=== PATIENT | female | born 1945 | race American Indian/Alaskan Native ===

== ENCOUNTER 2016-11-16 13:19 | Outpatient (CLI) | payer MEDICARE ==
--- NOTE | 2016-11-16 14:17 | Mammography Report ---
BILATERAL DIGITAL SCREENING MAMMOGRAM : 11/16/16 13:19:00 CLINICAL: Routine screening. COMPARISON:10/23/15 FINDINGS: The breasts are heterogeneously dense, which may obscure small masses. A group of left upper outer calcifications requires additional imaging. No mass or architectural distortion.The right breast is negative. IMPRESSION: Left calcifications requiring further workup. BI-RADS CATEGORY: 0 -- Additional Imaging Evaluation Required RECOMMENDATION: Recall for left ML and spot magnification CC and ML views. ACR BI-RADS MAMMOGRAPHIC CODES: 0 = Needs additional imaging evaluation; 1 = Negative; 2 = Benign; 3 = Probably benign; 4 = Suspicious; 5 = Malignant; 6 = Known biopsy-proven malignancy COMMENT: 1. Dense breast tissue, i.e., adenosis, fibrocystic changes, etc., may obscure an underlying neoplasm. 2. Approximately 10% of cancers are not detected with mammography. 3. A negative mammography report should not delay biopsy if a clinically suspicious mass is present. COMMENT: Patient follow-up letters are generated via our [employer] application.
== END 2016-11-16 13:20 | disposition home or self-care (01) ==
LOC: SPVWC 13:19
PROVIDERS: ATTEND Internal Medicine
DX: Z12.31 Encounter for screening mammogram for malignant neoplasm of breast (principal)
CPT/HCPCS: 77067; G0202

== ENCOUNTER 2016-12-09 15:00 | Outpatient (CLI) | payer MEDICARE ==
--- NOTE | 2016-12-09 15:38 | Mammography Report ---
LEFT DIGITAL DIAGNOSTIC MAMMOGRAM : 12/09/16 15:00:00 CLINICAL: Recall calcifications. COMPARISON:11/16/16 screening. FINDINGS: ML and CC magnification views demonstrate a group of relatively dense coarse calcifications which have increased in number compared to prior exams. However, no suspicious forms. No associated mass or architectural distortion. IMPRESSION: Probably benign calcifications. BI-RADS CATEGORY: 3 -- Probably Benign RECOMMENDATION: 6 month follow-up magnification views left breast. ACR BI-RADS MAMMOGRAPHIC CODES: 0 = Needs additional imaging evaluation; 1 = Negative; 2 = Benign; 3 = Probably benign; 4 = Suspicious; 5 = Malignant; 6 = Known biopsy-proven malignancy COMMENT: 1. Dense breast tissue, i.e., adenosis, fibrocystic changes, etc., may obscure an underlying neoplasm. 2. Approximately 10% of cancers are not detected with mammography. 3. A negative mammography report should not delay biopsy if a clinically suspicious mass is present. COMMENT: Patient follow-up letters are generated by our [email or web address] application.
== END 2016-12-09 15:01 | disposition home or self-care (01) ==
LOC: SPVWC 15:00
PROVIDERS: ATTEND Internal Medicine
DX: N63 Unspecified lump in breast (principal); R92.1 Mammographic calcification found on diagnostic imaging of breast; R92.8 Other abnormal and inconclusive findings on diagnostic imaging of breast
CPT/HCPCS: G0206-LT